=== PATIENT | male | born 1950 | race Caucasian/White ===

== ENCOUNTER 2024-10-25 10:17 | Outpatient (CLI) | payer MEDICARE, SELFPAY ==
--- OUTSIDE RECORDS SUMMARY | 2024-10-25 10:22 | XMS_ITS | Clinical Summary ---
Author Organization [facility] Address [address] [place] [address] Care Team Providers Care Fiction And Nonfiction Author Name Role Phone Hossein Eric Primary Care Provider [phone] Allergies Active Allergy Reactions Criticality Noted Date Comments Fluorescein Unknown,Rash Medium 11/29/2011 Medications aspirin EC 81 MG EC tablet Take 1 tablet (81 mg total) by mouth daily. Active Coenzyme Q10 (CO Q 10) 100 MG Cap 7 Active [place] 3 1000 MG Cap Take 3 capsules by mouth daily. 6 Active Multiple Vitamins-Minerals (MULTIVITAMIN ADULT) Tab Take 1 tablet by mouth daily. 7 Active Naproxen Sodium 220 MG Cap Take 2 capsules by mouth 2 (two) times daily. 7 Active Magnesium Citrate 100 MG Tab Take by mouth daily. 6 Active cholecalciferol 1.25 MG (69061 UT) capsule Active hydroCHLOROthiazide (HYDRODIURIL) 25 MG tabletIndications:R esistant hypertension TAKE 1 TABLET DAILY. 90 tablet 3 3 Active lisinopril (PRINIVIL) 20 MG tabletIndications:P rimary hypertension Take one tablet by mouth each morning to lower blood pressure 90 tablet 3 3 Active pravastatin (PRAVACHOL) 80 MG tabletIndications:H yperlipidemia, unspecified hyperlipidemia type take 1 tablet by mouth at bedtime 90 tablet 3 4 Active felodipine ER 10 MG TABLET SR 24 HR 24 hr tabletIndications:E ssential hypertension Take 1 tablet by mouth every evening. 90 tablet 3 4 Active spironolactone (ALDACTONE) 25 MG tabletIndications:E ssential hypertension Take 1 tablet (25 mg total) by mouth daily. Active Active Problems Problem Noted Date Diagnosed Date Chronic bilateral low back pain without sciatica 08/18/2023 Stage 3a chronic kidney disease 07/27/2020 Smoker 08/28/2018 BMI 34.0-34.9,adult 08/28/2018 Actinic keratoses 08/22/2017 Rotator cuff tendinitis 02/13/2017 Overview (02/22/2018): Transitioned From: Shoulder joint pain, right Primary hypertension 02/04/2015 Overview (02/22/2018): Transitioned From: Hypertension Dyslipidemia 07/25/2014 Osteoarthritis, knee 12/23/2013 AAA (abdominal aortic aneurysm) without rupture 06/03/2013 Overview (02/22/2018): Transitioned From: AAA (abdominal aortic aneurysm) Resolved Problems Problem Noted Date Diagnosed Date Resolved Date Encounter for preventive health examination 11/29/2011 11/15/2019 Immunizations Immunization Administration Dates Next Due Influenza Adult (Generic) 01/19/2024,05/2021,02/20/2019(Deferr ed: Patient Refused) MODERNA COVID-19 (12+) MRNA, LNP-S, PF, 100 MCG/ 0.5 ML DOSE 04/22/2020,03/25/2020 Pneumococcal (Pneumovax 23) 07/20/2021(D eferred: Patient/family declined) Pneumococcal(Ppv 23)Aka Pneumovax 01/20/2021(Def erred: Patient Refused) Tdap (Generic) 03/08/2016 Family History Medical History Relation Comments Heart Attack Maternal Uncle 1 Heart Attack Maternal Uncle 2 Heart Attack Maternal Uncle 3 Heart Attack Maternal Uncle 4 Heart Attack Maternal Uncle 5 Stroke Mother Relation Status Comments Maternal Uncle 1 Maternal Uncle 2 Maternal Uncle 3 Maternal Uncle 4 Maternal Uncle 5 Mother Social History Tobacco Use Types Packs/Day Years Used Date Smoking Tobacco: Every Day Cigarettes 0.5 55 Started: 07/04/1967; Last attempted to quit: 07/03/2022 Cigars Smokeless Tobacco: Never Tobacco Cessation:Ready to Q uit: No; Counseling Given: Yes Comments:Currently 1 cigar daily Alcohol Use Standard Drinks/Week Comments Yes 0 (1 standard drink = 0.6 oz pur e alcohol) 1 shot of whiskey per day AUDIT-C Answer Date Recorded Frequency of Alcohol Consumption 2-4 times a mon02/22/2018 Average Number of Drinks Not on file 018 Frequency of Binge Drinking Not on file 02/04 PHQ-2 Answer Date Recorded Patient Health Questionnaire-2 Score 0 08/16/2023 Education Answer Date Recorded What is the highest level of school you have completed or the highest degree you have received? Master's degree (e.g., MA, MS, Contreras, MEd, [employer], [employer]) 02/22/2018 Sex and Gender Information Value Date Recorded Sex Assigned at Not on file Legal Sex Male 7:56 PM CDT Gender Identity Not on file Sexual Orientation Not on file Last Filed Vital Signs Vital Sign Reading Time Taken Comments Blood Pressure 126/65 08/16/2023 7:13 AM CDT Pulse 55 08/16/2023 7:03 AM CDT Temperature 36.5 C (97.7 F) 08/16/2023 7:03 AM CDT Respiratory Rate 18 08/16/2023 7:03 AM CDT Oxygen Saturation 99% 08/16/2023 7:03 AM CDT Inhaled Oxygen Concentration - - Weight 124 kg (273 lb 6.4 oz) 08/16/2023 7:03 AM CDT Height 185.4 cm (6' 1) 08/16/2023 7:03 AM CDT Body Mass Index 36.07 08/16/2023 7:03 AM CDT Plan of Treatment Health Maintenance Due Date Last Done Comments Pneumococcal Vaccine: 50+ Years (1 of 2 - PCV) 01/25/1969 Annual Medicare Wellness Visit 2014 COVID-19 Vaccine (3 - 2023-2 5 season) 2023 04/22/2020, 03/25/2020 RSV Immunization or 60+ Years (1 - 1-dose 75+ series) 01/25/2024 PHQ-2 (Physician [place]) 03/06/2024 08/16/2023 Zoster Vaccines (1 of 2) 03/05/2025 Pos tponed from 1999 (Patient Refused) DTaP, Tdap and Td Vaccines ( 2 - Td or Tdap) 03/08/2026 03/08/2016 Colorectal Cancer Screening Colonoscopy (10 Years) 08/19/2026 08/19/2016, 08/19/2016 Hepatitis C Completed 12/23/2013 Meningococcal B Vaccine Aged Out No l onger eligible based on patient's age to complete this topic Meningococcal Vaccine Aged Out No piyush krysta eligible based on patient's age to complete this topic RSV Immunizations Under 20 Months Aged Out No longer eligible b ased on patient's age to complete this topic Procedures Procedure Name Priority Date/Time Associated Diagnosis Comments COLONOSCOPY Routine 08/19/2016 12:00 AM CDT HEPATITIS C ANTIBODY Routine 12/23/2013 10:27 AM CDT from Last 3 Months or Most Recently Relevant to Health Maintenance Results * Colonoscopy (08/19/2016 12:00 AM CDT) 08/19/2016 08/19/2016 Narrative [facility] TO [facility] CONVERSION - 08/19/2016 12:00 AM CDT Documented hx of procedure Procedure Note , Robert Conversion, - 01/07/2018 Documented hx of procedure us Generic Conversion Md [facility] PROCEDURE ORDERABLES Final Result [facility] TO [facility] CONVERSION * HEPATITIS C ANTIBODY (12/23/2013 10:27 AM CDT) HEPATITIS C AB NON-REACTI VE NR [facility] TO [facility] CONVERSION Comment: Result Comment: TESTING PERFORMED AT [facility], A [facility]BER OF THE [facility]. 12/23/2013 10:2 7 AM CDT 12/23/2013 10:27 AM CDT Narrative [facility] TO EPIC CONVERSION - 12/24/2013 5:08 PM CDT Result Communication: No patient communication needed at this time us Lon Dias MD LABORATORY Final Res ult [facility] TO EPIC CONVERSION from Last 3 Months or Most Recently Relevant to Health Maintenance Insurance MEDICARE [facility] Advance Directives Documents on File Type Date Recorded Patient Science Consultant Expl anation Advance Directives and Living Will 08/11/2015 [employer] DIRECTIVES Care Teams Fiction And Nonfiction Author Relationship Specialty [place] [address] [place] [address] PCP - General Physician [employer] 01/03/24
[2024-10-25 13:25] LABS: Hematocrit 39.6 % (42.0-52.0); Hemoglobin 12.8 g/dL (14.0-18.0); Immature Granulocyte Percent A 0.5 % (0-0.5); Lymphocytes Absolute Auto 1.08 K/mm3 (0.9-3.2); Mean Corpuscular HGB Conc 32.3 g/dl (32-36); Mean Corpuscular Hemoglobin 30.5 pg (26-34); Mean Corpuscular Volume 94.5 fl (80-100); Nucleated Red Blood Cells Absolute Auto 0.000 K/mm3 (0.0-0.012); Nucleated Red Blood Cells Perc 0.0 % (0.0-0.2); Platelet Count Result 234 k/mm3 (150-375); Red Blood Count 4.19 M/mm3 (4.6-6.20); White Blood Count 7.9 K/mm3 (4.5-10.0)
[2024-10-25 13:32] LABS: Hemoglobin A1C 5.6 % (<5.7)
[2024-10-25 13:34] LABS: Alanine Aminotransferase 16 U/L (6-50); Albumin Level 4.4 g/dL (3.5-5.1); Alkaline Phosphatase 67 U/L (38-126); Anion Gap 8 mmol/L (4-12); Aspartate Amino Transferase 37 U/L (17-59); Bilirubin,Total 0.7 mg/dL (0.2-1.3); Blood Urea Nitrogen 25 mg/dL (9-20); Calcium 9.4 mg/dL (8.4-10.2); Carbon Dioxide 24 mmol/L (22-30); Chloride 105 mmol/L (98-107); Cholesterol 157 mg/dL (0-200); Estimated Glomerular Filt Rate > 60; Glucose 100 mg/dL (65-110); HDL Direct 34 mg/dL; Potassium 4.6 mmol/L (3.4-5.0); Sodium 137 mmol/L (137-145); Total Protein 8.2 g/dL (6.3-8.2); Triglycerides 143 mg/dL (<150)
[2024-10-25 14:09] LABS: Prostate Specific Antigen < 0.1 ng/mL (< OR = 4.0)
[2024-10-25 17:44] LABS: Vitamin B12 692.0 pg/mL (239-931)
[2024-10-30 10:08] LABS: Estradiol, Sensitive 18.6 pg/mL (8.0-35.0)
[2024-11-01 13:08] LABS: Free Testosterone (Direct) 2.0 pg/mL (6.6-18.1)
== END 2024-10-25 10:18 | disposition home or self-care (01) ==
LOC: ANHGOSHLAB 10:19
PROVIDERS: PCP Internal Medicine; Visit Provider Clinical Nurse Specialist
DX: D64.9 Anemia, unspecified (principal); Z13.29 Encounter for screening for other suspected endocrine disorder; Z90.79 Acquired absence of other genital organ(s); R53.83 Other fatigue; E78.5 Hyperlipidemia, unspecified; I10 Essential (primary) hypertension; R73.01 Impaired fasting glucose; Z12.5 Encounter for screening for malignant neoplasm of prostate
CPT/HCPCS: 36415; 80053; 80061; 82607; 82670; 82746; 83036; 84144; 84153; 84402; 84403; 85025; G0103

== ENCOUNTER 2024-11-21 07:05 | Outpatient (CLI) | payer MEDICARE, SELFPAY ==
--- NOTE | ~2024-11-21 | US_ITS ---
EXAMINATION: US aorta [facility] DATE: 11/21/2024 07:59 INDICATION: Abdominal aortic aneurysm screening. TECHNIQUE: Grayscale, color Doppler, and pulsed Doppler images of the aorta and common iliac arteries were obtained. COMPARISON: Ultrasound 07/21/2014 FINDINGS: The aorta demonstrates a 3.5 cm fusiform infrarenal aneurysm. The right common iliac artery is normal in caliber. The left common iliac artery is normal in caliber. IMPRESSION: 1. 3.5 cm fusiform infrarenal aortic aneurysm. Reviewed, dictated and finalized at location E.
== END 2024-11-21 07:06 | disposition home or self-care (01) ==
PROVIDERS: PCP Internal Medicine; Visit Provider Clinical Nurse Specialist
DX: Z13.6 Encounter for screening for cardiovascular disorders (principal); I71.43 Infrarenal abdominal aortic aneurysm, without rupture
CPT/HCPCS: 76706